=== PATIENT | female | born 1990 | race African-American/Black ===

== ENCOUNTER 2017-04-12 12:23 | Inpatient (IN) ==
[2017-04-12] MEDS: LACTATED RINGERS 1,000 ML IV SCH ×2 (13:22→20:15)
[2017-04-12] MEDS ORDERED: LACTATED RINGERS 1,000 ML IV PRN (13:24)
[2017-04-12] MEDS ORDERED: MEPERIDINE 50 MG/1 ML VIAL IV PRN (13:24)
[2017-04-12 13:34] LABS: Basophils % 0.1 % (0.0-0.8); Eosinophils % 0.3 % (0.00-10.9); Hematocrit 30.5 VOL% (35.7-47.0); Hemoglobin 9.7 GM/DL (12.0-16.0); Immature Granulocytes % 0.2 %; Immature Granulocytes Absolute 0.02 #; Lymphocytes # 1.2 10*3/uL (1.4-4.0); Lymphocytes % 13.7 % (21.3-54.2); Mean Corpuscular HGB Conc 31.8 GM/DL (32-36); Mean Corpuscular Hemoglobin 25 PG (27-34); Mean Platelet Volume 10.5 FL (9.6-12.0); Monocytes # 0.6 10*3/uL (0.11-0.8); Monocytes % 6.8 % (1.7-12.7); Neutrophils # 6.9 10*3/uL (1.4-7.4); Neutrophils % 78.9 % (38.7-73.9); Platelet Count 210 T/CUMM (130-400); Red Blood Count 3.96 MC/CUMM (3.8-5.5); Red Cell Distribution Width 16.9 % (9.3-17.3); White Blood Count 8.7 T/CUMM (4-12)
[2017-04-12 14:05] LABS: Albumin 2.3 G/DL (3.4-5.0); Bilirubin,Total 0.4 MG/DL (0.2-1.0); Calcium 8.3 MG/DL (8.5-10.1); Osmolality,Calculated 275.4 MOS/KG (273-304); Potassium 3.7 MMOL/L (3.5-5.1); Total Protein 5.9 G/DL (6.4-8.3); Uric Acid 5.1 MG/DL (2.6-6.0)
[2017-04-12] MEDS: AMPICILLIN INJ 2,000 MG in SODIUM CHLORIDE 0.9% 100 ML IV SCH ×2 (14:36→20:15)
[2017-04-12] MEDS: METHYLDOPA 250 MG TABLET PO SCH (21:45)
[2017-04-12] MEDS: ONDANSETRON 4 MG/2 ML VIAL IV PRN (22:00)
[2017-04-12] MEDS ORDERED: diphenhydrAMINE 50 MG/1 ML VIAL ONE (22:11)
[2017-04-13] MEDS: BUTORPHANOL 2 MG/ML VIAL IV PRN ×2 (00:30→08:32)
[2017-04-13] MEDS: AMPICILLIN INJ 2,000 MG in SODIUM CHLORIDE 0.9% 100 ML IV SCH ×2 (02:31→08:25)
[2017-04-13] MEDS: LACTATED RINGERS 1,000 ML IV SCH ×2 (04:47→10:38)
[2017-04-13] MEDS ORDERED: hydrOXYzine HCL 25 MG/1 ML VIAL IM PRN (08:13)
[2017-04-13] MEDS ORDERED: PROMETHAZINE 25 MG/1 ML VIAL IM ONE (08:13)
[2017-04-13] MEDS ORDERED: ONDANSETRON 4 MG/2 ML VIAL IV ONE (08:13)
[2017-04-13] MEDS ORDERED: CITRIC ACID/SODIUM CITRATE 30 ML UDCUP PO ONE (08:13)
[2017-04-13] MEDS ORDERED: FAMOTIDINE 20 MG/2 ML VIAL IV ONE (08:13)
[2017-04-13] MEDS ORDERED: ePHEDrine 50 MG/ML AMP IV PRN (08:13)
[2017-04-13] MEDS ORDERED: diphenhydrAMINE 50 MG/1 ML VIAL IV PRN ×2 (08:13)
[2017-04-13] MEDS: METHYLDOPA 250 MG TABLET PO SCH ×3 (08:25→20:38)
[2017-04-13] MEDS ORDERED: fentaNYL 2 MCG/ROPIV 0.2% EPID 150 ML EPIDURAL SCH (08:30)
[2017-04-13] MEDS: ONDANSETRON 4 MG/2 ML VIAL IV PRN (08:32)
[2017-04-13] MEDS ORDERED: OXYTOCIN/LR 20 UNIT/1,000 ML BAG IV SCH (09:30)
[2017-04-13 11:13] LABS: Apearance,Urine CLEAR (Clear); Bilirubin,Urine Negative (Negative); Blood, Urine Negative (Negative); Glucose,Urine (UA) Negative (Negative); Ketones,Urine 20 mg/dL (Negative); Mucus,Urine Occasional /LPF (Occasional); Nitrite,Urine Negative (Negative); Protein,Urine 30 MG/DL; RBC,Urine 2 /HPF (0-4); Squamous Epithelial Cell,Urine Occasional /HPF (0-10); Urine Color Yellow (Yellow); Urine Specific Gravity 1.016 (1.001-1.035); Urine Urobilinogen < 2.0 EU/DL (0.2-1.0); WBC,Urine <1 /HPF (0-6)
[2017-04-13] MEDS ORDERED: LIDOCAINE 1% 50 ML VIAL ONE (12:28)
[2017-04-13] MEDS ORDERED: miSOPROStol 200 MCG TABLET ONE (12:28)
[2017-04-13] MEDS ORDERED: CARBOPROST TROMETHAMINE 250 MCG/ML AMP IM ONE (12:29)
[2017-04-13] MEDS ORDERED: RHO(D) IMMUNE GLOBULIN 300 MCG SYRINGE IM ONE (13:43)
[2017-04-13] MEDS ORDERED: LANOLIN 50% CREAM 0.3 OZ TUBE TOP PRN (13:43)
[2017-04-13] MEDS ORDERED: ACETAMINOPHEN 325 MG TABLET PO PRN (13:43)
[2017-04-13] MEDS ORDERED: DIPH/TET/ACEL PERT BOOSTER VACCINE 0.5 ML VIAL IM ONE (13:43)
[2017-04-13] MEDS ORDERED: OXYTOCIN/LR 20 UNIT/1,000 ML BAG IV ONE (13:43)
[2017-04-13] MEDS ORDERED: ONDANSETRON 4 MG/2 ML VIAL IV PRN (13:43)
[2017-04-13] MEDS ORDERED: BISACODYL 10 MG SUPP RECTAL PRN (13:43)
[2017-04-13] MEDS ORDERED: BENZOCAINE 20%/MENTHOL 0.5% SPRAY 56 GM CAN TOP PRN (13:43)
[2017-04-13] MEDS ORDERED: MEASLES/MUMPS/RUBELLA VACCINE 0.5 ML VIAL SUBCUT ONE (13:43)
[2017-04-13] MEDS ORDERED: WITCH HAZEL PADS 100/JAR TOP PRN (13:43)
[2017-04-13] MEDS ORDERED: oxyCODONE/ACETAMINOPHEN 5-325 MG TABLET PO PRN (13:43)
[2017-04-13] MEDS ORDERED: HYDROCORTISONE 2.5% RECTAL CREAM 30 GM TUBE TOP PRN (13:43)
[2017-04-13] MEDS: DOCUSATE SODIUM 100 MG CAPSULE PO SCH (21:33)
[2017-04-14 06:09] LABS: Basophils % 0.2 % (0.0-0.8); Eosinophils # 0.1 10*3/uL (0.0-0.87); Eosinophils % 0.5 % (0.00-10.9); Hematocrit 28.8 VOL% (35.7-47.0); Hemoglobin 8.9 GM/DL (12.0-16.0); Immature Granulocytes % 0.3 %; Immature Granulocytes Absolute 0.03 #; Lymphocytes % 10.9 % (21.3-54.2); Mean Corpuscular HGB Conc 30.9 GM/DL (32-36); Mean Corpuscular Hemoglobin 24 PG (27-34); Mean Corpuscular Volume 77.4 FL (87-102); Mean Platelet Volume 11.1 FL (9.6-12.0); Monocytes # 0.6 10*3/uL (0.11-0.8); Monocytes % 6.7 % (1.7-12.7); Neutrophils # 7.8 10*3/uL (1.4-7.4); Neutrophils % 81.4 % (38.7-73.9); Platelet Count 194 T/CUMM (130-400); Red Blood Count 3.72 MC/CUMM (3.8-5.5); Red Cell Distribution Width 17.2 % (9.3-17.3); White Blood Count 9.6 T/CUMM (4-12)
[2017-04-14] MEDS: METHYLDOPA 250 MG TABLET PO SCH ×3 (08:54→20:46)
[2017-04-14] MEDS: DOCUSATE SODIUM 100 MG CAPSULE PO SCH ×2 (08:55→21:21)
[2017-04-14] MEDS: IBUPROFEN 800 MG TABLET PO PRN (12:43)
[2017-04-14] MEDS: oxyCODONE/ACETAMINOPHEN 5-325 MG TABLET PO PRN ×2 (12:43→21:51)
[2017-04-14] MEDS ORDERED: RHO(D) IMMUNE GLOBULIN 300 MCG SYRINGE IM ONE (17:15)
[2017-04-14 22:40] LABS: Basophils % 0.2 % (0.0-0.8); Eosinophils # 0.2 10*3/uL (0.0-0.87); Eosinophils % 1.8 % (0.00-10.9); Hematocrit 27.7 VOL% (35.7-47.0); Hemoglobin 8.7 GM/DL (12.0-16.0); Immature Granulocytes % 0.3 %; Immature Granulocytes Absolute 0.03 #; Lymphocytes # 1.6 10*3/uL (1.4-4.0); Lymphocytes % 17.3 % (21.3-54.2); Mean Corpuscular HGB Conc 31.4 GM/DL (32-36); Mean Corpuscular Hemoglobin 25 PG (27-34); Mean Platelet Volume 10.7 FL (9.6-12.0); Monocytes # 0.7 10*3/uL (0.11-0.8); Monocytes % 7.3 % (1.7-12.7); Neutrophils # 6.6 10*3/uL (1.4-7.4); Neutrophils % 73.1 % (38.7-73.9); Platelet Count 194 T/CUMM (130-400); Red Blood Count 3.55 MC/CUMM (3.8-5.5); Red Cell Distribution Width 17.1 % (9.3-17.3); White Blood Count 9.1 T/CUMM (4-12)
[2017-04-14 22:52] LABS: INR 0.9; PT Patient Result 9.8 SECS; Partial Thromboplastin Time 30.7 SECS (0-40)
[2017-04-14 22:55] LABS: Alanine Aminotransferase 10 U/L (13-56); Alkaline Phosphatase 113 U/L (45-117); Aspartate Amino Transferase 13 U/L (0-37); Bilirubin,Total < 0.39 MG/DL (0.2-1.0); Blood Urea Nitrogen 8 MG/DL (7-18); Calcium 8.1 MG/DL (8.5-10.1); Glucose 79 MG/DL (74-106); Osmolality,Calculated 277.3 MOS/KG (273-304); Potassium 3.8 MMOL/L (3.5-5.1); Sodium 141 MMOL/L (136-145); Total Protein 5.2 G/DL (6.4-8.3)
[2017-04-15] MEDS: METHYLDOPA 250 MG TABLET PO SCH (08:40)
[2017-04-15] MEDS: DOCUSATE SODIUM 100 MG CAPSULE PO SCH (08:43)
[2017-04-15] MEDS ORDERED: INFLUENZA VIRUS VACCINE 0.5 ML SYRINGE IM ONE (09:49)
[2017-04-15 11:36] VITALS: BP 160/98
[2017-04-15] MEDS: IBUPROFEN 800 MG TABLET PO PRN (12:22)
== END 2017-04-15 16:45 | disposition home or self-care (01) | DRG 774 ==
LOC: N.LDOUT 12:23 → N.LD 12:29 → N.OB 04-13 17:03
PROVIDERS: ADMIT Obstetrics & Gynecology; ATTEND Obstetrics & Gynecology